=== PATIENT | female | born 1945 | race Two or more races ===

== ENCOUNTER 2019-01-23 08:54 | Outpatient (CLI) | payer MEDICARE ==
[2019-01-23] MEDS ORDERED: GADOTERATE 10 MMOL/20 ML VIAL ONE (09:38)
== END 2019-01-23 23:59 | disposition home or self-care (01) ==
LOC: CFH 08:54
PROVIDERS: ATTEND Radiology Radiation Oncology
DX: D32.0 Benign neoplasm of cerebral meninges (principal)
CPT/HCPCS: 70553; A9575